=== PATIENT | female | born 1980 | race Caucasian/White ===

== ENCOUNTER 2017-03-31 18:10 | Inpatient (IN) | payer OTHER ==
[~2017-03-31] VITALS: Ht 172.7 cm; Wt 67.6 kg
--- NOTE | ~2017-03-31 | HPC ---
[facility] [place] [address] PAIN MANAGEMENT CONSULTATION Name: KAVITA DIETRICH Room #: 307-P [facility] IN M.R.#: [id number] Admission: 03/31/17 Attend Phys: Johnnie Edge DO Discharge: 04/02/17 Date of : 78 Report #: [id number] THIS REPORT FOR: //name// CC: MARISA physician/PCP Johnnie Edge DATE OF SERVICE: 04/02/2017 CHIEF COMPLAINT: Low back pain, left lower extremity pain with paresthesias. HISTORY OF PRESENT ILLNESS: As you know, the patient is a very pleasant 36-year-old female, who sustained a fall while holding her child. She states after the fall, she began to experience intense back pain and left lower extremity pain. She sought evaluation through a chiropractic professional for adjustments. She apparently underwent some adjustments without efficacy. Pain became so intense that she was brought to the Emergency Department for further evaluation. She was admitted to the hospital and found to have suffered changes at the L4-L5 and L5-S1 level, significant enough they were concerned of lumbar radicular symptoms. The patient was subsequently admitted for further evaluation. We are requested to evaluate the patient for possible epidural injection under fluoroscopic guidance to address suspected lumbar radicular symptoms. The patient denies any other injury or trauma to her lower back. 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 She is extremely active during the job. She states she was unable to do her normal activities due to this increasing pain. PAST MEDICAL HISTORY: None. PAST SURGICAL HISTORY: Noncontributory. SOCIAL HISTORY: The patient smokes. Denies any IV or illicit drug use. Denies any chronic alcohol abuse. 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 She is not receiving workmen's compensation. She is not in litigation in regards to her pain. She is unaccompanied today. ALLERGIES: PENICILLIN. CURRENT MEDICATIONS: Tizanidine 4 mg 3 times a day, tramadol 50 mg q. 4 hours p.r.n. for pain, naproxen sodium 500 mg dose 1 tab p.o. b.i.d. IMAGING: MRI of the lumbar spine obtained 04/01/2017 shows at L4-L5, mild bulging, central annular tear, subtle broad-based disk protrusion seen centrally and slightly to the left. There is a component extending into the lateral recess and inferior left lateral neural foramen, causing moderate inferior neural foraminal narrowing on the left, mild facet changes. At L5-S1, there is an annular tear, small disk protrusion seen on the right. [place] [address] PAIN MANAGEMENT CONSULTATION Name: KAVITA DIETRICH Room #: 307-P DIS IN M.R.#: [id number] Admission: 03/31/17 Attend Phys: Johnnie Edge DO Discharge: 04/02/17 Date of : 78 Report #: [id number] right S1 nerve root without deformity. No significant neural foraminal narrowing. PHYSICAL EXAMINATION: VITAL SIGNS: Blood pressure 112/85, pulse is 81, respiratory rate 20, unlabored. The patient is 99% on room air, current temperature 98.2 degrees Fahrenheit, height 5 feet 8 inches tall, weight 149 pounds. GENERAL: Well developed, well nourished, and well hydrated. A 36-year-old female appearing her stated age. She is placing current pain score at 10/10. HEENT: Normocephalic and atraumatic. Pupils are equal, round, and reactive to light. Extraocular muscles are intact. Sclerae are nonicteric without injection. NEUROLOGIC: Cranial nerves 2-12 are grossly intact. Speech is fluent. The patient deemed an excellent historian. LUNGS: Clear. No wheezing, rhonchi, or rales. CARDIOVASCULAR: Regular. No appreciable gallop or rub. ABDOMEN: Soft, nontender and nondistended. Normoactive bowel sounds. EXTREMITIES: Show no clubbing, no cyanosis, no edema. MUSCULOSKELETAL: Seated straight leg raising positive on the left. Supine straight leg raising positive on the left. Felton's test is negative. Modified Gaenslen's is positive for axial low back pain. There is palpatory tenderness over the lower lumbar spine, no spinous process tenderness. No ecchymosis, no skin lesions. Ankle clonus negative. Babinski is negative. She appears to be intact to light touch from L1 through S2 dermatomes. Deep tendon reflexes are equal and symmetrical at patella and Achilles. Gait is antalgic favoring left lower extremity over right. Stance is forward flexed. Lumbar spine, loss of lordotic curvature. ASSESSMENT: 1. Symptomatic lumbar radiculopathy. 2. Displacement of lumbar intervertebral disk with radiculopathy. 3. Lumbosacral spondylosis with radiculopathy. PLAN: 1. Based on today's physical exam and history, the patient has provided, the description the patient uses in regards to pain, as well as the location of her symptoms and their correlation to her MRI, the likely source of the patient's pain is lumbar radiculopathy. The patient and I discussed at length today treatment options for lumbar radicular symptoms. These would include physical therapy, stretching exercises, core strengthening that would also include medication management with addition of a neuropathic pain medication and consistent nonsteroidal anti-inflammatory. We discussed the requested epidural injections, spinal cord stimulator therapy and surgical options. After reviewing risks and benefits of all proposed treatment options, the patient chose to undergo an epidural injection under fluoroscopic guidance. [address] [address] PAIN MANAGEMENT CONSULTATION Name: KAVITA DIETRICH Room #: 307-P DIS IN ..#: [id number] Admission: 03/31/17 Attend Phys: Johnnie Edge DO Discharge: 04/02/17 Date of : 78 Report #: [id number] The patient was advised the risks and benefits of a lumbar epidural injection. These risks include but are not necessarily limited to bleeding, bruising, infection, worsening pain, no relief of pain, also risk of temporary or permanent muscle weakness, temporary or permanent nerve damage, possible paralysis and . The patient states she understood and wished to proceed. 2. No medication changes were made at today's visit. The patient will continue current medical therapy as previously prescribed. changes could be addressed in her hospital stay if necessary. I will defer to primary team for these medication changes. 3. We will see the patient back in followup visit on an as needed basis. We are hopeful today's epidural injection will provide the patient analgesic benefit to be able to return to her activities of daily living. We wish to thank you for the opportunity to see her in consultation. PROCEDURE NOTE DESCRIPTION OF PROCEDURE: L5-S1 left paramedian epidural steroid injection under fluoroscopic guidance. This is the first procedure of the first series that the patient is undergoing. After obtaining written consent, the patient was taken back to the fluoroscopy suite, placed in a prone position with pillow under the abdomen to decrease lumbar lordosis. The skin overlying the lumbosacral area was then prepped and draped in aseptic fashion. The L5-S1 vertebral interspace was then identified by AP fluoroscopy. The skin and subcutaneous tissue overlying the target site of injection was anesthetized with 3 mL 1% lidocaine. A 20-guage 3-1/2 inch Tuohy needle was then advanced under fluoroscopic guidance towards the epidural space using a left paramedian approach. The epidural space was identified using loss of resistance to air technique. After negative aspiration for heme or cerebrospinal fluid, a total of 1 mL of Omnipaque was injected. A lumbar epidurogram was confirmed using both AP and lateral fluoroscopy. After negative aspiration for heme or cerebrospinal fluid, 5 mL of solution containing 2 mL 40 mg per mL, 80 mg total triamcinolone and 3 mL of lidocaine 1% was injected in increments. Contrast spread was noted posterior epidural space. The needle was then retracted approximately half way and needle tract flushed with 1 mL of 1% lidocaine. Needle was then removed. There were no apparent sensory or motor deficits in the lower extremity following the procedure. A sterile bandage was placed over the injection site. The heart rate, pulse, oximetry and blood pressure were continuously monitored after the procedure. There were no apparent complications. The patient tolerated the procedure well and was carefully escorted to the recovery room in [address] [address] PAIN MANAGEMENT CONSULTATION Name: KAVITA DIETRICH Room #: 307-P [facility] IN M.R.#: [id number] Admission: 03/31/17 Attend Phys: Johnnie Edge, Discharge: 04/02/17 Date of : 78 Report #: [id number] stable condition. There were no apparent complications. After meeting discharge criteria, the patient was then discharged home. <ELECTRONICALLY SIGNED> By: Johnnie Samayoa DO 04/03/17 [id number] [id number] Johnnie Samayoa DO /nt
--- NOTE | ~2017-03-31 | EKG ---
[address] [employer] [place] [address] ELECTROCARDIOGRAM REPORT Name: KAVITA DIETRICH Room #: 307-P ADM IN M.R.#: [id number] Admission: 03/31/17 Attend Phys: Johnnie Edge DO Discharge: Date of : 78 Report #: [id number] THIS REPORT FOR: //name// [facility] ED Test Date: 2017-03-31 Test Time: 19:47:31 Pat Name: KAVITA DIETRICH Department: Room: 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
--- NOTE | ~2017-03-31 | HC ---
[facility] [place] [address] CONSULTATION Name: KAVITA DIETRICH Room #: 307-P [facility] IN M.R.#: [id number] Admission: 03/31/17 Attend Phys: Johnnie Edge DO Discharge: 04/02/17 Date of : 78 Report #: [id number] THIS REPORT FOR: //name// CC: MARISA physician/PCP Johnnie Edge DICTATED BY: Mika GREGG REASON FOR CONSULT: Lower back lumbar pain. CONSULTED BY: Nurse practitionerAkila. HISTORY OF PRESENT ILLNESS: The patient is a 36-year-old female who came into the Emergency department with complaint of lower back pain with radicular symptoms down her left lower extremity. The patient states she had already been to one Emergency Department last week where she was given medication and discharged. She then followed up with her chiropractor and saw the chiropractor 3 times. Her third appointment was on Saturday of 03/30/2017 and on Saturday03/31/2017, she woke up with acute lower back pain. The patient reports that all her symptoms started about 2 weeks ago when she was picking up her child and pivoting. She does state she has a chronic history of lower back pain, but no symptoms similar to this. The patient reported that her left leg felt heavier and numb when she was admitted; however, today during my assessment, she says it is much better. Throughout her stay in the Emergency Room, she has received IV steroids as well as oral steroids in addition to pain medication. This has obviously made her feel more comfortable and she feels she has made some progress. However, she also is concerned that she has not been mobile this last 24 hours and therefore I think her relief is mostly due to that. PAST MEDICAL HISTORY: Include hypomagnesemia, hypoglycemia, hypokalemia and history of back pain. SOCIAL HISTORY: The patient is a current smoker. Does state that she drinks alcohol on a weekly basis. In addition, she tested positive for cocaine and marijuana on her urine test. CURRENT PERTINENT LABS: Include white blood cell count of 7.6, hemoglobin 12.0, platelet count 149, chloride of 109, anion gap 6, calcium 8.2. IMAGING: A hip x-ray was done in the ER with no abnormalities seen. A lumbar spine MRI was done on Saturday showing degenerative disk changes with disk protrusion and an annular tear at L5-S1 which contacts the S1 nerve root. Disk bulging at L4-L5 with central to left paramedian annular tear with some degree of inferior neural foraminal narrowing particularly on the left at the L4-L5 centrally. PHYSICAL EXAMINATION: The patient is alert and oriented and very pleasant. She [address] [address] CONSULTATION Name: KAVITA DIETRICH Room #: 307-P [facility] IN M.R.#: [id number] Admission: 03/31/17 Attend Phys: Johnnie Edge DO Discharge: 04/02/17 Date of : 78 Report #: [id number] does claim to have numbness in her left lower extremity; however, she responds to touch and is able to feel my touch in her lower left extremity, +2 dorsal pedis. Skin is dry and intact, warm to touch, less than 3 seconds capillary refill on the left lower extremity. Pain to palpation of the lower back, full range of motion of the knee, full range of motion of hip with pain. Her pain seems to go along the L4-L5 root. Strength is 4/5 in the left lower extremity. No pain to palpation of the left knee, no pain to palpation of the left hip. The patient is not incontinent and denied trauma. Denies any pain or numbness in the right lower extremity. IMPRESSION: Lumbar pain with radicular symptoms involving disk protrusion, annular tear of L5-S1, disk bulging at L4-L5 with paramedian annular tear with mild neural foraminal narrowing. PLAN: The patient has been treated with pain medication and IV steroid medication. I have requested a consult by pain management for possible injections. I will start physical therapy. The patient is to follow up as outpatient once discharged and pain is managed. We will follow up with the patient once as she continues to be at the hospital. Thank you for this consult. By: 0714 1551 Eduardo Wang MD /nt
[~2017-03-31 18:10] MED LIST: DERMOPLAST SPRA56 ML; IBUPROFEN 800800 M1 PO; LANOLIN56 GM; NORCO 5-325 TA1 EACH PO; TUCKS MEDICATE1 EAC1
[2017-03-31 18:18] VITALS: BP 102/71
[2017-03-31] MEDS ORDERED: NAPROSYN500 MG PO (18:22)
[2017-03-31] MEDS ORDERED: TRAMADOL 50 MG50 MG PO (18:22)
[2017-03-31] MEDS ORDERED: ZANAFLEX4 MG PO (18:22)
[2017-03-31 18:51] LABS: ABSOLUTE NEUTROPHILS 6.6 thou/uL (1.4-8.2); BASOPHILS 0.7 % (0.0-2.0); EOSINOPHILS 2.3 % (0.0-3.0); HEMATOCRIT 40.5 % (37.0-47.0); MCHC 34.7 g/dL (28.0-37.0); MCV 95.2 fL (80.0-100.0); MONOCYTES 6.9 % (1.0-8.0); PLATELET COUNT 200 thou/uL (150-400); POLYS 73.1 % (36.0-66.0); RBC 4.25 mil/uL (4.20-5.00); RDW 12.1 % (10.5-14.5)
[2017-03-31 18:54] LABS: MANUAL DIFF NO
[2017-03-31 18:58] LABS: CALCIUM 6.5 mg/dL (8.5-10.1); CREATININE 0.8 mg/dL (0.6-1.0)
[2017-03-31 19:02] LABS: POTASSIUM 2.7 mmol/L (3.5-5.1)
[2017-03-31 20:59] LABS: URINE BILIRUBIN NEGATIVE (Negative); URINE BLOOD NEGATIVE (Negative); URINE COLOR YELLOW; URINE GLUCOSE-RANDOM* NEGATIVE (Negative); URINE KETONES NEGATIVE (Negative); URINE NITRITE NEGATIVE (Negative); URINE PROTEIN (DIPSTICK) NEGATIVE (Negative); URINE UROBILINOGEN 0.2 E.U./dl (0.2-1.0)
[2017-03-31 21:10] LABS: AMP/METHAMP Negative (Negative); BARBITURATES Negative (Negative); BENZODIAZEPINES Negative (Negative); COCAINE POSITIVE (Negative); METHADONE Negative (Negative); OPIATES POSITIVE (Negative); PCP Negative (Negative); THC POSITIVE (Negative)
[2017-03-31 21:33] VITALS: BP 130/81
[2017-03-31 21:50] VITALS: BP 120/73
[2017-04-01 00:25] VITALS: BP 101/60
[2017-04-01 02:04] LABS: HEMATOCRIT 37.3 % (37.0-47.0); HEMOGLOBIN 12.8 gm/dL (12.0-15.0); MCHC 34.3 g/dL (28.0-37.0); RBC 3.89 mil/uL (4.20-5.00); RDW 12.5 % (10.5-14.5); WBC 6.4 thou/uL (4.0-11.0)
[2017-04-01 02:24] LABS: CREATININE 0.9 mg/dL (0.6-1.0); TOTAL BILIRUBIN 0.2 mg/dL (<0.1-1.0); TOTAL PROTEIN 5.9 g/dL (6.4-8.2)
[2017-04-01 04:10] VITALS: BP 110/60
[2017-04-01 09:09] VITALS: BP 110/71
[2017-04-01 17:55] VITALS: BP 110/63
[2017-04-01 19:20] VITALS: BP 100/60
[2017-04-02 04:13] VITALS: BP 112/85
[2017-04-02 06:38] LABS: ABSOLUTE NEUTROPHILS 4.8 thou/uL (1.4-8.2); BASOPHILS 0.4 % (0.0-2.0); EOSINOPHILS 1.1 % (0.0-3.0); HEMATOCRIT 34.4 % (37.0-47.0); LYMPHOCYTES 27.6 % (24.0-44.0); MCH 33.5 pg (26.0-34.0); MCV 95.7 fL (80.0-100.0); MONOCYTES 7.4 % (1.0-8.0); PLATELET COUNT 149 thou/uL (150-400); POLYS 63.5 % (36.0-66.0); RBC 3.59 mil/uL (4.20-5.00); RDW 12.2 % (10.5-14.5); WBC 7.6 thou/uL (4.0-11.0)
[2017-04-02 06:39] LABS: MANUAL DIFF NO
[2017-04-02 06:53] LABS: CALCIUM 8.2 mg/dL (8.5-10.1); CREATININE 0.8 mg/dL (0.6-1.0); POTASSIUM 3.7 mmol/L (3.5-5.1)
[2017-04-02] MEDS ORDERED: CYCLOBENZAPRINE10 MG PO (08:44)
[2017-04-02] MEDS ORDERED: HYDROCODON-ACE1 EAC7 PO (08:45)
[2017-04-02 09:25] VITALS: BP 105/68
[2017-04-02 14:36] VITALS: BP 105/68
== END 2017-04-02 15:07 | disposition home or self-care (01) | DRG 552 ==
LOC: ER 18:10 → EROBS 20:00 → 3N 20:00
PROVIDERS: Family Medicine; Nurse Practitioner
PROC: BR1BYZZ Fluoroscopy of Lumbosacral Joint using Other Contrast (ICD-10-PCS; principal; 2017-04-02)
PROC: 3E0R3BZ Introduction of Anesthetic Agent into Spinal Canal, Percutaneous Approach (ICD-10-PCS; principal; 2017-04-02)
PROC: 3E0R33Z Introduction of Anti-inflammatory into Spinal Canal, Percutaneous Approach (ICD-10-PCS; principal; 2017-04-02)
DX: M54.16 Radiculopathy, lumbar region (principal); M51.16 Intervertebral disc disorders with radiculopathy, lumbar region; M47.27 Other spondylosis with radiculopathy, lumbosacral region; F17.210 Nicotine dependence, cigarettes, uncomplicated; E87.6 Hypokalemia; E83.42 Hypomagnesemia; F14.10 Cocaine abuse, uncomplicated; F12.10 Cannabis abuse, uncomplicated; F19.10 Other psychoactive substance abuse, uncomplicated; Z88.0 Allergy status to penicillin; Z79.899 Other long term (current) drug therapy
CPT/HCPCS: 10096

== ENCOUNTER → 2017-04-17 | Outpatient (CLI) | payer OTHER ==
[~2017-04-17] VITALS: Ht 172.7 cm; Wt 65.8 kg
[~2017-04-17] MED LIST changes: +CYCLOBENZAPRINE10 MG PO; +GABAPENTIN 100100 MG PO; +HYDROCODON-ACE1 EAC7 PO; +NAPROSYN500 MG PO; +NEURONTIN 300300 M1 PO; +NUCYNTA50 MG PO; +TRAMADOL 50 MG50 MG PO; +ZANAFLEX4 MG PO
--- NOTE | ~2017-04-17 | HPC ---
[facility] [place] [address] PAIN MANAGEMENT CONSULTATION Name: KAVITA DIETRICH Room #: [facility]#: [id number] Admission: 04/17/17 Attend Phys: Johnnie Samayoa DO Discharge: Date of : 78 Report #: [id number] THIS REPORT FOR: //name// CC: MARISA physician/PCP Johnnie aSmayoa DATE OF SERVICE: 04/17/2017 CHIEF COMPLAINT: Low back pain, left lower extremity pain and paresthesias. HISTORY OF PRESENT ILLNESS: As you know, the patient is a very pleasant 36-year-old female who sustained a fall while holding her child prior to admission to the hospital at [facility]. She states that after the fall, she began to experience intense low back pain, left lower extremity pain. We saw the patient while she was an inpatient at [facility] on 04/02/2017. At that visit, the patient was diagnosed with lumbar radiculopathy secondary to the displacement of a lumbar intervertebral disk. She also had noted arthritic changes in the lumbar spine contributing to symptoms. She underwent an epidural injection under fluoroscopic guidance at that visit with improvement in symptoms of about 20-30%. She returns today in followup visit now placing pain score at 7/10, states her pain is constant, burning, cramping, pulling, aching, throbbing, stabbing and tender, exacerbated with movement certain positioning, improves with rest, heat, cold compresses, past chiropractic manipulation and massage. She returns today to undergo the second in series of epidural injections and discuss medication management. ALLERGIES: PENICILLIN. CURRENT MEDICATIONS: Naproxen 500 mg twice a day, cyclobenzaprine 10 mg 3 times a day, hydrocodone/acetaminophen 5/325 one tab p.o. q. 6 hours p.r.n. for pain, gabapentin 400-500 mg p.o. at bedtime. SOCIAL HISTORY: The patient continues to smoke. Denies IV or illicit drug use. Denies any chronic alcohol use. 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 She is unaccompanied today. IMAGING: No new imaging available since our hospitalization of 04/02/2017. PHYSICAL EXAMINATION: VITAL SIGNS: Blood pressure 116/77, pulse is 82, respiratory rate 14, unlabored. The patient is 97% on room air, height 5 feet 8 inches tall, weight 145 pounds, BMI calculated 22.1. GENERAL: Well developed, well nourished, well hydrated 36-year-old female appearing her stated age. She is placing current pain score at 7/10. HEENT: Normocephalic, atraumatic. Pupils equal, round, reactive to light. Extraocular muscles are intact. Sclerae nonicteric without injection. [facility] [address] [place] [address] PAIN MANAGEMENT CONSULTATION Name: KAVITA DIETRICH Room #: [facility]#: [id number] Admission: 04/17/17 Attend Phys: Johnnie Samayoa DO Discharge: Date of : 78 Report #: [id number] NEUROLOGIC: Cranial nerves 2-12 grossly intact. Speech fluent. EXTREMITIES: Show no clubbing, no cyanosis, no edema. MUSCULOSKELETAL: Seated straight leg raising positive on the left, supine straight leg raising positive on the left. Felton's test negative. Modified Gaenslen's positive for axial low back pain. Muscle bulk and tone equal and symmetrical in lower extremities. ASSESSMENT: 1. Symptomatic lumbar radiculopathy. 2. Displacement of lumbar intervertebral disk with radiculopathy. 3. Lumbosacral spondylosis with radiculopathy. 4. Intractable pain. PLAN: 1. The patient returns today in followup visit having noted a 20-30% improvement in overall pain with the epidural injection provided at last visit. She returns today in followup visit to undergo the next in a series of epidural injections in hopes of improving pain. The patient has been advised risks and benefits of the procedure, states she understood and wished to proceed. 2. The patient will be continued on naproxen 500 mg dose 1 tab p.o. b.i.d. I have given the patient #60 tablets, 2 refills, 3 months' worth of medication. The patient denies any side effects with the medication, does feel it is working well for anti-inflammatory effects. 3. The patient has started Neurontin at home. She is taking 100 mg dose, 4-5 at night. We recommend a more rapid increase in the gabapentin in hopes of improving pain. This in conjunction with the epidural steroid injection should provide good benefit. We will provide the patient a prescription of gabapentin 300 mg tablet, she is to take 2 tabs p.o. at bedtime for 3 nights or 600 mg total at the end of 3 nights, then increase to 900 mg, assuming no decrease in pain and no side effects. She will then take the 900 mg at night for 3 nights and if not effective, then increase to 300 mg morning and 900 mg at night. She was given #120 tablets with 2 refills. We are hopeful, she will see benefit during this titration and be able to stabilize the dose that provides good benefit without side effects. 4. We did advise the patient the side effects of sleepiness, disorientation, confusion, mental slowing. If she notes these side effects, contact our clinic. 5. The patient will be started on Nucynta 50 mg dose 1 tab p.o. q.i.d. I have given the patient #120 tablets. We are utilizing Nucynta due to its dual effect of nociceptive pain relief as well as neuropathic pain relief. This medication is optimized for neuropathic and nociceptive pain typically caused by lumbar radicular symptoms. We recommend this medication specifically as it has a dual effect and will alleviate pain without major side effects. We have given the patient #120 tablets, advised to initiate the therapy 4 times a day, no more frequently. We have given this prescription with no refills, 1 month only. 6. We will see the patient back in followup visit in about 30 days, we will review efficacy of medication and this second epidural injection. [address] [address] PAIN MANAGEMENT CONSULTATION Name: KAVITA DIETRICH Room #: [facility]#: [id number] Admission: 04/17/17 Attend Phys: Johnnie Samayoa DO Discharge: Date of : 78 Report #: [id number] PROCEDURE NOTE DESCRIPTION OF PROCEDURE: Lumbar epidural steroid injection under fluoroscopic guidance. This is the second procedure of the first series that the patient is undergoing. After obtaining written consent, the patient was taken back to the fluoroscopy suite, placed in a prone position with pillow under the abdomen to decrease lumbar lordosis. The skin overlying the lumbosacral area was then prepped and draped in aseptic fashion. The L5-S1 vertebral interspace was then identified by AP fluoroscopy. The skin and subcutaneous tissue overlying the target site of injection was anesthetized with 3 mL 1% lidocaine. A 20-guage 3-1/2 Tuohy needle was then advanced under fluoroscopic guidance towards the epidural space using a left paramedian approach. The epidural space was identified using loss of resistance to air technique. After negative aspiration for heme or cerebrospinal fluid, a total of 1 mL of Omnipaque was injected. A lumbar epidurogram was confirmed using both AP and lateral fluoroscopy. After negative aspiration for heme or cerebrospinal fluid, 5 mL of a solution containing 2 mL 40 mg per mL, 80 mg total of triamcinolone, 3 mL of lidocaine 1% was injected in increments. Contrast spread was noted post epidural space. The needle was then retracted approximately half way and needle tract flushed with 1 mL of 1% lidocaine. Needle was then removed. There were no apparent sensory or motor deficits in the lower extremity following the procedure. A sterile bandage was placed over the injection site. The heart rate, pulse, oximetry and blood pressure were continuously monitored after the procedure. There were no apparent complications. The patient tolerated the procedure well and was carefully escorted to the recovery room in stable condition. There were no apparent complications. After meeting discharge criteria, the patient was then discharged home. cc: Referring Physician By: [id number] Johnnie Samayoa DO /phil
[2017-04-17 10:07] VITALS: BP 116/77
== END ==
LOC: PAIN 06:57
DX: M47.27 Other spondylosis with radiculopathy, lumbosacral region (principal); M79.662 Pain in left lower leg; M51.16 Intervertebral disc disorders with radiculopathy, lumbar region; F17.210 Nicotine dependence, cigarettes, uncomplicated; F32.9 Major depressive disorder, single episode, unspecified

== ENCOUNTER → 2017-05-08 | Outpatient (CLI) | payer OTHER ==
[~2017-05-08] VITALS: Ht 172.7 cm; Wt 66.1 kg
--- NOTE | ~2017-05-08 | HPC ---
[facility] [place] [address] PAIN MANAGEMENT CONSULTATION Name: KAVITA DIETRICH Room #: REG [facility]#: [id number] Admission: 05/08/17 Attend Phys: Johnnie Samayoa DO Discharge: Date of : 78 Report #: [id number] THIS REPORT FOR: //name// CC: MARISA physician/PCP Johnnie Samayoa DATE OF SERVICE: 05/08/2017 CHIEF COMPLAINT: Low back pain, left lower extremity pain with paresthesias. HISTORY OF PRESENT ILLNESS: As you know, the patient is a very pleasant 36-year-old female who sustained a fall while holding a child prior to admission to the hospital at [facility]. During the hospitalization, she was seen by our services and underwent an epidural injection under fluoroscopic guidance to address lumbar radicular symptoms involving low back and left lower extremity. She has undergone a second in the series of epidural injections on return visit on 04/17/2017. She returns today 05/08/2017 stating pain of 4-5/10. States her pain is constant, burning, cramping, aching, pulling, throbbing, stabbing, tender and weakness, exacerbated with activities, improves with rest, relaxation, cold compresses, chiropractic manipulation, massage, back bracing. She returns stating that the second epidural injection provided only 20% improvement in overall pain. This did not last for any length of time. She returns to discuss options for treatment. ALLERGIES: PENICILLIN. CURRENT MEDICATIONS: Tizanidine, naproxen, gabapentin. SOCIAL HISTORY: The patient continues to smoke. Denies IV or illicit drug use. Denies any chronic alcohol use. 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 She is unaccompanied today. IMAGING: No new imaging available. PHYSICAL EXAMINATION: VITAL SIGNS: Blood pressure 132/92, pulse 79, respiratory rate 14, unlabored. The patient is 100% on room air, height 5 feet 8 inches tall. Weight 145.8 pounds, BMI calculated 22.2. GENERAL: Well developed, well nourished, well hydrated 36-year-old female appearing her stated age. She is placing pain score today at 4-5/10. HEENT: Normocephalic, atraumatic. Pupils equal, round, reactive to light. Extraocular muscles are intact. EXTREMITIES: Show no clubbing, no cyanosis, no edema. MUSCULOSKELETAL: The patient has normal tactile sensation to light touch and pinprick from L2 through S1 dermatomes. Seated straight leg raising negative. Supine straight leg raising positive on the left. Felton's test negative. [address] [address] PAIN MANAGEMENT CONSULTATION Name: KAVITA DIETRICH Room #: REG [facility]#: [id number] Admission: 05/08/17 Attend Phys: Johnnie Samayoa DO Discharge: Date of : 78 Report #: [id number] Modified Gaenslen's positive for axial low back pain. Gait antalgic favoring left lower extremity over right. ASSESSMENT: 1. Symptomatic lumbar radiculopathy. 2. Displacement of a lumbar intervertebral disk with radiculopathy. 3. Lumbosacral spondylosis with radiculopathy. 4. Chronic intractable pain. PLAN: 1. The patient returns today in followup visit having noted no significant improvement with the second epidural injection under fluoroscopic guidance. The patient places about a 20% improvement in overall pain with the epidural injection, but this lasted only days. She returns today in followup visit to discuss treatment options. The patient and I discussed treatment options that could be effective at treating her symptoms. This would include physical therapy, stretching exercises, core strengthening. We discussed medication management with escalating doses of gabapentin, but the patient has had side effects of this medication such as somnolence, decreased mental acuity and disorientation. We could consider possible rotation to Lyrica and determine if this would be more effective. We discussed repeating the epidural injection though given the fact that she received only 20% improvement in overall pain. I do not feel that this would provide long-term benefit. We discussed spinal cord stimulator therapy and surgical options with the patient. The patient chose to begin with medication management. The patient and I discussed rotation from gabapentin to Lyrica. The patient is having significant side effects with gabapentin and is unable to escalate the doses in the morning hours. The patient will trial the Lyrica samples 75 mg dose. She will begin 1 tab p.o. q. 8 h.s. for 5 days, then increase to 2 tabs p.o. at bedtime, total 150 at night, go for another 5 days and increase to 1 tab in the morning, 2 tabs at night for 5 days, then 2 tabs in morning, 2 tabs at night. She was given samples of the medication to trial. If this is effective, we will write a full prescription for the patient. We are hopeful the patient will see improvement with this medication. 2. The patient was written a prescription for Nucynta to help with neuropathic pain. Unfortunately, coverage is not possible through the patient's third constitution party payer. We will trial the patient on Ultracet one tab p.o. q. 6 hours p.r.n. for pain. We will give this patient a prescription of Ultracet today. We will see her back in followup visit to discuss efficacy. The patient was advised to take the medication only when pain is intolerable, not to rely on the medication prophylactically. 3. The patient will return to our clinic in approximately one month. She will contact our clinic in regards to the efficacy of the Lyrica and determine if [facility] [address] [place] [address] PAIN MANAGEMENT CONSULTATION Name: KARLOKAVITA SPAULDING Room #: REG CLI [facility]#: [id number] Admission: 05/08/17 Attend Phys: Johnnie Samayoa DO Discharge: Date of : 78 Report #: [id number] continuation of this medication would be warranted or rotation to another neuropathic pain medication. cc: Referring Physician By: [id number] Johnnie Samayoa DO /phil
[2017-05-08 09:37] VITALS: BP 132/92
== END ==
LOC: PAIN 06:49
DX: M51.16 Intervertebral disc disorders with radiculopathy, lumbar region (principal); M47.26 Other spondylosis with radiculopathy, lumbar region; G89.29 Other chronic pain; Z79.899 Other long term (current) drug therapy; F17.210 Nicotine dependence, cigarettes, uncomplicated

== ENCOUNTER → 2017-06-18 | Outpatient (CLI) | payer OTHER ==
[~2017-06-18] VITALS: Ht 172.7 cm; Wt 68.3 kg
[~2017-06-18] MED LIST changes: +HYDROCODONE-APA1 TA1 PO; +LYRICA150 MG PO
--- NOTE | ~2017-06-18 | HPC ---
[facility] [address] [address] PAIN MANAGEMENT CONSULTATION Name: KAVITA DIETRICH Room #: REG [facility]#: [id number] Admission: 06/18/17 Attend Phys: Johnnie Samayoa DO Discharge: Date of : 78 Report #: [id number] THIS REPORT FOR: //name// CC: MARIAS physician/PCP Johnnie Samayoa DATE OF SERVICE: 06/18/2017 CHIEF COMPLAINT: Low back pain, left lower extremity pain and paresthesias. HISTORY OF PRESENT ILLNESS: As you know, the patient is a 36-year-old female who returns today in followup visit having undergone epidural injections under fluoroscopic guidance times 2 without significant pain improvement. We have started the patient on medication therapy. She returns today in followup visit to discuss treatment options. She is placing pain today at a level of 3-4/10, states her pain is aching, stabbing and burning in sensation, exacerbated with lying down and activities, improves with rest, heat, cold compresses and medications. The patient discontinued the Lyrica started at our last visit due to depression and weight gain. She indicates that she is swimming more frequently and this appears to be helping her pain. She is also experiencing some left knee pain and is requesting possible physical therapy. She returns today in followup visit to discuss options for treatment. ALLERGIES: PENICILLIN. CURRENT MEDICATIONS: Nucynta 50 mg 3 times a day, gabapentin 300 mg p.o. at bedtime, and naproxen 500 mg once a day. IMAGING: No new imaging available. PHYSICAL EXAMINATION: VITAL SIGNS: Blood pressure 117/74, pulse is 83, respiratory rate 14 and unlabored, the patient is 97% on room air, height 5 feet 8 inches tall, weight 150.6 pounds, and BMI calculated 22.9. GENERAL: Well-developed, well-nourished, well-hydrated 36-year-old female, appears her stated age. She is in no acute distress, awake, alert and oriented x 3. Current pain score is rated at 3-4/10. HEENT: Normocephalic, atraumatic. Pupils are equal, round, and reactive to light. Extraocular muscles are intact. Sclerae nonicteric without injection. Cranial nerves 2-12 are grossly intact. EXTREMITIES: Show no clubbing, no cyanosis, and no edema. MUSCULOSKELETAL: Seated straight leg raising negative. Supine straight leg raising positive on the left. Felton test is negative. Modified Gaenslen's positive for axial low back pain. Ankle clonus negative. Babinski is negative. Muscle bulk and tone equal and symmetrical in lower extremities. [address] [address] PAIN MANAGEMENT CONSULTATION Name: KAVITA DIETRICH Room #: REG [facility]..#: [id number] Admission: 06/18/17 Attend Phys: Johnnie Samayoa DO Discharge: Date of : 78 Report #: [id number] ASSESSMENT: 1. Symptomatic lumbar radiculopathy. 2. Displacement of lumbar intervertebral disk with radiculopathy. 3. Lumbosacral spondylosis with radiculopathy. 4. Chronic intractable pain. PLAN: 1. The patient returns today in followup visit indicating a pain level of 3-4/10. She indicates pain is intensified with activities. She has trialed 2 epidural injections under fluoroscopic guidance, both of which provided only transient improvement in symptoms. Unfortunately, she continues to experience pain for which we had to start the patient on medication therapy. The patient was started on Lyrica, but had to discontinue the medication due to depression. She is currently on gabapentin, but is concerned about weight gain with this medication. She is trying to be active as possible and improve in symptoms, but has been having difficulty due to increasing pain. She returns today in followup visit to discuss treatment options. 2. Recommend the patient continue on Nucynta 50 mg dose 2 tabs p.o. b.i.d., I have given the patient #120, no refills. We will reassess this medication in 1 month. 3. The patient will submit to a buccal drug screen. The buccal drug screen will be sent out for confirmation. We will review the findings once they are available. I have requested it for the patient if there is any aberrancy I need to know about before the testing, she indicates there is nothing in the urine that should not be present. We will review the findings once they are available. This is part of our drug monitoring for patients on chronic opioids. 4. The patient and I did discuss the possibility of initiating physical therapy. She is amenable to this suggestion and we will start the patient on physical therapy immediately. 5. We will see the patient back in followup visit 1 month from today. This will give the patient a chance to continue medication therapy, continue her daily work activities and daily exercise program and to look to see how effective the physical therapy may be. <ELECTRONICALLY SIGNED> By: Johnnie Samayoa DO 06/28/17 [id number] Johnnie Samayoa DO /nt
[2017-06-18 09:22] VITALS: BP 117/74
== END | disposition home or self-care (01) ==
LOC: PAIN 06-11 08:05
DX: M54.16 Radiculopathy, lumbar region (principal); M47.817 Spondylosis without myelopathy or radiculopathy, lumbosacral region; G89.29 Other chronic pain; M51.26 Other intervertebral disc displacement, lumbar region; Z88.0 Allergy status to penicillin; Z79.899 Other long term (current) drug therapy; F17.200 Nicotine dependence, unspecified, uncomplicated

== ENCOUNTER → 2017-08-20 | Outpatient (CLI) | payer OTHER ==
[~2017-08-20] VITALS: Ht 172.7 cm; Wt 69.1 kg
[~2017-08-20] MED LIST changes: +GABAPENTIN100 MG PO; +WELLBUTRIN 100100 MG PO
--- NOTE | ~2017-08-20 | HPC ---
[facility] [place] [address] [address] [place] [address] PAIN MANAGEMENT CONSULTATION Name: KAVITA DIETRICH Room #: REG [facility]#: [id number] Admission: 08/20/17 Attend Phys: Johnnie Samayoa DO Discharge: Date of : 78 Report #: [id number] THIS REPORT FOR: //name// CC: FAM physician/PCP Johnnie Edge DO DATE OF SERVICE: 08/20/2017 REFERRING PHYSICIAN: Johnnie Edge DO CHIEF COMPLAINT: Low back pain, left lower extremity pain and paresthesias. HISTORY OF PRESENT ILLNESS: As you know, the patient is a 37-year-old female who returns today in followup visit having completed 3 epidural injections under fluoroscopic guidance with only transient improvement in symptoms. As you are aware, the patient suffers from lumbar radiculopathy involving low back and left lower extremity. The patient has been started on medical therapy, returning in followup visit stating the combinations of medications and exercise appear to be improving pain. She underwent a urine drug screen at last visit and she wishes to review the findings. She wishes to discuss further treatment options. She is indicating pain level of 4/10, states pain is exacerbated with lying down and activity, improves with rest, heat, cold compresses and medications. She describes pain as aching, stabbing, and burning. ALLERGIES: PENICILLIN. CURRENT MEDICATIONS: Bupropion 100 mg twice a day, Nucynta 50 mg 2 tabs 3 times a day, gabapentin 300 mg p.o. at bedtime, and naproxen 500 mg twice a day. SOCIAL HISTORY: The patient denies tobacco, alcohol, IV or illicit drug use. She is unaccompanied at today's visit. LABORATORY DATA: Urine drug screen obtained on 06/08/2017, shows positive for cotinine as well as cocaine. Urine drug screen obtained 03/31/2017, shows positive for cocaine and opioids, also positive for tetrahydrocannabinoid. PHYSICAL EXAMINATION: VITAL SIGNS: Blood pressure 118/79, pulse 83, respiratory rate 14 and unlabored, the patient is 100% on room air, height 5 feet 8 inches tall, weight 152.4 pounds, and BMI calculated 23.2. GENERAL: Well-developed, well-nourished, well-hydrated 37-year-old female, appearing stated age, placing current pain score at 4/10. HEENT: Normocephalic, atraumatic. Pupils are equal, round, and reactive to light. Extraocular muscles are intact. Sclerae nonicteric without injection. NEUROLOGIC: Cranial nerves 2-12 grossly are intact. Speech fluent. [address] [address] PAIN MANAGEMENT CONSULTATION Name: KAVITA DIETRICH Room #: REG [facility]..#: [id number] Admission: 08/20/17 Attend Phys: Johnnie Samayoa DO Discharge: Date of : 78 Report #: [id number] EXTREMITIES: Show no clubbing, no cyanosis, and no edema. MUSCULOSKELETAL: There is some palpatory tenderness over the paraspinal musculature of lower lumbar spine, no spinous process tenderness. Seated straight leg raising negative. Supine straight leg raising remains positive on the left. Gait is mildly antalgic favoring left lower extremity over right. ASSESSMENT: 1. Symptomatic lumbar radiculopathy. 2. Displacement of lumbar intervertebral disk with radicular symptoms. 3. Lumbosacral spondylosis with radicular symptoms. 4. Chronic intractable pain. PLAN: 1. The patient has returned today in followup visit where we have reviewed her urine drug screen from June. Unfortunately, the patient had showed positive for cocaine on 2 different occasions, this in conjunction with metabolites from smoking, would now preclude us from providing the patient with ongoing opioid therapy. We have discussed with the patient once received the March drug screen that an activity of utilizing cocaine is a reason for discontinuing opioids, she indicated that she was not partaking of cocaine at that time, she must have had a marijuana cigarette laced with cocaine. Unfortunately, the patient again showed positive for cocaine in June, this now precludes us from providing the patient with opioid therapy. The patient is partaking in illicit substances and is no longer a candidate for continuation of opioids. I have discussed this with the patient today. Unfortunately, we will no longer be able to prior this patient with opioid therapy. We discussed that we would be more than willing to provide the patient with referrals to addiction specialists in the areas as the patient obviously has an addiction to illicit substances and needs assistance on coming off these illegal drugs. The patient flatly denies any addiction yet she shows positive for cocaine at 2 different times over a 3-month period. This in conjunction with the fact that the patient continues to smoke, shows she has a strong addiction potential, we encouraged her to seek treatment and she has refused. 2. I advised the patient at this time we would be more than willing to see her back for epidural injections, but ongoing medical therapy with opioids will not be offered further. She will need to seek evaluation and treatment elsewhere, though we recommend strongly that the patient seek drug counseling. I do not feel that the patient has a good concept of the level of addiction that she has and I believe that ultimately this may lead to detrimental situations. I strongly encouraged the patient to seek evaluation for her multiple addiction problem. 3. We will start the patient on gabapentin escalation. I would recommend adding a 100 mg dose to the already tolerated 300 mg at night dose and begin escalating as rapidly as possible to an efficacious level. I did advise the patient to watch for side effects with this medication including somnolence, decrease mental acuity, disorientation and confusion. She can escalate by [address] [facility] [address] [place] [address] PAIN MANAGEMENT CONSULTATION Name: KAVITA DIETRICH [id number] Admission: 08/20/17 Attend Phys: Johnnie Samayoa DO Discharge: Date of : 78 Report #: [id number] mg every 7 days. She was given #90 tablets of gabapentin 100 mg dose to add to the already existing 300 mg. 4. The patient could return to our clinic in 1 month for medication therapy in the form of gabapentin nonsteroidal anti-inflammatories and epidural injections, also surgical referrals can be provided. 5. The patient may be returning to your capable hands to further treatment, we would recommend conservative treatment, no opioids given her addiction problems and I would recommend a surgical consultation if necessary. <ELECTRONICALLY SIGNED> By: Johnnie Samayoa DO 08/28/17 [id number] Johnnie Samayoa DO /nt
[2017-08-20 10:17] VITALS: BP 118/79
== END | disposition home or self-care (01) ==
LOC: PAIN 06:45
DX: Z76.0 Encounter for issue of repeat prescription (principal); M51.16 Intervertebral disc disorders with radiculopathy, lumbar region; M47.27 Other spondylosis with radiculopathy, lumbosacral region; G89.29 Other chronic pain; F17.200 Nicotine dependence, unspecified, uncomplicated; Z88.0 Allergy status to penicillin; Z79.899 Other long term (current) drug therapy